=== PATIENT | female | born 1970 | race Caucasian/White ===

== ENCOUNTER → 2016-11-11 | Outpatient (CLI) | payer BC ==
--- NOTE | 2016-11-11 15:38 | RADRPT ---
PROCEDURE: XR RIGHT KNEE. CLINICAL INDICATION: Right knee pain TECHNIQUE: Three views of the right knee are available for review. COMPARISON: None available FINDINGS: The bones are well aligned. No evidence for fracture, subluxation or dislocation. No evidence for erosive change. No radiopaque foreign body identified. No evidence for joint effusion. IMPRESSION: 1. Unremarkable right knee x-ray series. 2. No acute fracture or dislocation is seen. RPTAT: XX .Moe Martinez MD, MD Date Time Electronically viewed and signed by .Moe Martinez MD, on 11/11/2016 15:38 .T/
--- NOTE | 2016-11-12 07:16 | HKNOTE ---
DATE OF SERVICE: 11/11/2016 MAIN COMPLAINT: Pain in the right leg. HISTORY OF MAIN COMPLAINT: The patient is a 46-year-old female, who "slammed" her right knee against the bedpost on 10/25/2016. She could barely walk. The next day, the knee became very swollen. She applied ice. She was seen at the [facility]. X-rays were taken. Ultrasound was obtained which showed "2 blood clotting in 2 blood vessels going to my heart". She was seen by her senior principal process engineer Dr. Leonardo Gonzales. He referred her for a Doppler ultrasound of the knee. When she was found to have positive pathology should be referred to Dr. Alvarado a vascular surgeon. He diagnosed that there were 2 blood vessels that had blood clots and he has put her on a blood thinner for 3 months. She is due to see him again tomorrow. She was concerned that she may have also fractured one of the bones in the knee and she presents now for an orthopedic evaluation from that point of view. The patient's knee is not unstable, is not locked and it is not swollen. She is not limping. She can walk as far she likes. She does not have a shoe lift. She can clip her toenails and tie her shoelaces. Sporting activities none. She has to work out at the gym. PAST ORTHOPEDIC HISTORY: Previous orthopedic operations none. PRIOR CORTISONE INTAKE: None. ALCOHOL INTAKE: Twice a year. OTHER JOINT PROBLEMS: Left shoulder (patient fell). BLOOD TESTS FOR ARTHRITIS: None. PRIOR INJURIES TO HIPS AND KNEES: None. WORK STATUS: Patient is stay at home. PAST MEDICAL HISTORY: 1. Hypertension. 2. Hypothyroid. PAST SURGICAL HISTORY: Negative. FOOD OR DRUG ALLERGIES: None. FAMILY HISTORY: Father age 76, alive and has diabetes. Mother is 77, has diabetes and tuberculosis. SYSTEMS REVIEW: Currently has "blood clots." Otherwise entirely negative. MAINTENANCE PAINTER APPRENTICE: Dr. Leonardo Gonzales, [address] [place] [id number]. PHYSICAL EXAMINATION: GENERAL: A delightful fit looking, 46-year-old female. She walks without a walking aid. Her gait is normal. VITAL SIGNS: Height 5 foot 7 inches, weight 160 pounds, blood pressure 170/85, and temperature 98.8. Directed physical examination of the right knee. MUSCULOSKELETAL EXAMINATION: Right knee alignment is normal, extension is full. Flexion is full. No effusion. No tenderness anywhere around the knee. Examination of the right leg no sign of deep vein thrombosis. There is no tenderness anywhere in the calf area and no swelling. Shaquille's sign is negative. IMAGING: Plain x-rays of the right knee obtained today are entirely normal. There is nothing to suggest of a fracture or any underlying pathology. MANAGEMENT: The patient is given reassurance that there is no underlying fracture or any evidence of injury to the knee. She can resume all her normal activities. Dictated By: Jamie Castrejon MD /[email or web address]/chet /Document#: [id number]
--- NOTE | 2016-11-12 08:00 | HKNOTE ---
DATE OF SERVICE: 11/11/2016 Dr. Leonardo Gonzales [address], [address] [place] [address] Gonzales: Thank you for referring Grisel Almonte who was seen in the office today of complaining of pain in the right knee. She has a remarkable story of having developed deep vein thrombosis in the leg following a fall onto the knee. Fortunately, the right knee is otherwise clinically normal. There is no evidence of injury to the knee that requires any follow up at this time. She will be seen by me again if she should have a recurrence of her severe symptoms. Enclosed is a copy of office notes for your records. Warmest Regards, Dictated By: Jamie Castrejon MD /[email or web address]/chet /Document#: [id number]
--- NOTE | 2016-11-12 08:00 | HKNOTE ---
DATE OF SERVICE: 11/11/2016 Dr. Leonardo Gonzales [address], [address] [place] [address] Gonzales: Thank you for referring Grisel Almonte is seen in the office today of complaining of pain in the right leg. She has a rather unusual story in that she developed deep vein thrombosis after landing on her right knee against a corner of a bed. A documented deep vein thrombosis of the right leg for me. She comes in to see me to see if there is any underlying injury to the knee itself. She was advised that imaging of the knee is normal. There is no evidence of any underlying fracture. A clinical examination of the knee is entirely normal. Management: The patient was given reassurance and she will be seen again as necessary. Dictated By: Jamie Castrejon MD /[email or web address]/chet /Document#: [id number]
== END | disposition home or self-care (01) ==
LOC: HKI 15:08
DX: M25.561 Pain in right knee (principal)
CPT/HCPCS: 73562; G0463